=== PATIENT | male | born 1985 | race Two or more races ===

== ENCOUNTER 2017-12-24 03:00 | Emergency (ER) | payer OTHER ==
[~2017-12-24] VITALS: Ht 175.3 cm; Wt 67.6 kg
[2017-12-24 03:02] VITALS: BP 104/75
[2017-12-24] MEDS ORDERED: LIDOCAINE-MPF 2% ,5ML INFIL ONE (03:30)
[2017-12-24] MEDS ORDERED: LIDOCAINE-MPF 2% ,5ML ONE (03:36)
== END 2017-12-24 04:35 | disposition home or self-care (01) ==
LOC: ED 04:20
DX: S61.210A Laceration without foreign body of right index finger without damage to nail, initial encounter (principal); W25.XXXA Contact with sharp glass, initial encounter; Y93.G1 Activity, food preparation and clean up; Y99.8 Other external cause status; Y92.009 Unspecified place in unspecified non-institutional (private) residence as the place of occurrence of the external cause
CPT/HCPCS: 12001; 99283

== ENCOUNTER 2020-01-18 21:52 | Emergency (ER) | payer OTHER ==
[~2020-01-18] VITALS: Ht 175.3 cm; Wt 71.9 kg
[2020-01-18 21:56] VITALS: BP 128/79
[2020-01-18] MEDS ORDERED: IBUPROFEN 600 MG TABLET ONE (22:59)
[2020-01-18] MEDS ORDERED: IBUPROFEN 600 MG TABLET PO ONE (23:00)
== END 2020-01-18 23:10 | disposition home or self-care (01) ==
LOC: ED 22:52
DX: S60.222A Contusion of left hand, initial encounter (principal); G89.11 Acute pain due to trauma; M79.642 Pain in left hand; Z87.891 Personal history of nicotine dependence; X58.XXXA Exposure to other specified factors, initial encounter; Y93.89 Activity, other specified; Y92.098 Other place in other non-institutional residence as the place of occurrence of the external cause; Y99.8 Other external cause status
CPT/HCPCS: 99283; 99285

== ENCOUNTER 2020-10-07 16:01 | Emergency (ER) | payer OTHER ==
[~2020-10-07] VITALS: Ht 177.8 cm; Wt 69.5 kg
--- NOTE | 2020-10-07 16:33 | NUR ---
assumed care of pt. pt here for L hand pain and swelling x2 days. pt deneis trauma. states that he has been working on his car no other c/o at this time x-ray has been compelted. + family at bedside
--- NOTE | 2020-10-07 17:24 | NUR ---
tech at bedside for wrist splint placement
[2020-10-07 17:57] VITALS: BP 100/52
== END 2020-10-07 18:01 | disposition home or self-care (01) ==
LOC: ED 16:25
DX: L03.114 Cellulitis of left upper limb (principal)
CPT/HCPCS: 29125; 99283